=== PATIENT | male | born 1995 | race Caucasian/White ===

== ENCOUNTER 2024-03-22 05:20 | Observation (INO) ==
--- NOTE | 2024-03-10 16:01 | Anesthesiology Consultation ---
Date of Service March 10, 2024 Assessment & Plan (1) Encounter for pre-operative examination: - Infectious disease screening: Per assessment on 03/10/24: No known infectious disease contacts or current infectious disease symptoms. No noted recent Covid positive test result. - S/P Lefort 1 in Segments (05/01/22): Grade view 1, MAC#3, ETT 7 at [facility] Chart Review Chart Review: Acceptable Risk for Surgery and Patient NOT seen in Pre Admission Testing History Surgery Operation Date: 03/22/24 07:00 Proposed Procedures p Lefort I and Sagittal Splint Bone Grapy Surgical Splint Placement - Julien Moncada, DMD Height/Weight Height: 5 ft 9 in Weight: 63.503 kg Allergies Allergy/AdvReac Type Severity Reaction Status Date / Time amoxicillin Allergy Unknown child Verified 03/10/24 15:33 Medications Home Medications Medication Instructions Recorded Confirmed Last Taken estradiol 2 mg tablet (Estrace) 2 mg PO TID 03/07/21 03/10/24 04/30/22 21:00 pediatric multivitamin (Gummi Bear 1 tab PO QAM 03/07/21 03/10/24 04/30/22 09:00 Multivitamin chewable tablet) ascorbic acid (vitamin C) 500 mg 500 mg PO QAM 04/24/22 03/10/24 04/30/22 09:00 capsule ondansetron HCl 8 mg tablet 8 mg PO Q8H PRN nausea and 04/30/22 03/10/24 Unknown vomiting #10 tabs lisdexamfetamine 20 mg capsule 20 mg PO QAM 06/11/23 03/10/24 Unknown (Vyvanse) escitalopram oxalate 10 mg tablet 10 mg PO QAM 03/10/24 03/10/24 Unknown (Lexapro) Past Medical History Medical History ADHD Anxiety 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 Depression GERD (gastroesophageal reflux disease) Hx of migraines Monthly Temporomandibular joint disorder + clicking, no locking Transgender Past Family History Family History Other No known health problems Past Surgical History Surgical History History of wisdom tooth extraction Hx of myringotomy Hx of oral surgery Lefort 1 in Segments (05/01/22): Grade view 1, MAC#3, ETT 7 at [facility] Social History Smoking Status: Never smoker tobacco type: e-cigarettes Smoking cigarettes per day: Vapes Do You Dip or Chew Tobacco: No Hx Alcohol Use: No Hx Substance Use: Yes substance use type: marijuana (Medical card- inh, daily) Lab Results Anesthesia Preop Results Results Anesthesia Widget: WBC 5.00 K/ul (4.8-10.8) 03/07/24 Hgb 12.9 g/dl (14.0-18.0) L 03/07/24 Hct 37.7 % (42.0-52.0) L 03/07/24 Plt 188 K/uL (130-400) 03/07/24 PT 10.5 Seconds (9.0-12.0) 03/07/24 PTT 27 Seconds (21-31) 03/07/24 INR 1.0 (0.9-1.1) 03/07/24 Blood Type A Positive 03/07/24 Antibody Screen NEGATIVE 03/07/24
[2024-03-22] MEDS: LR 15ML/HR IV SCH (05:52)
[2024-03-22] MEDS: LACTATED RINGER'S 1,000 ML IV SCH (05:52)
--- NOTE | 2024-03-22 07:07 | History & Physical Report ---
Date of Service March 22, 2024 History of Present Illness Chief Complaint: HPI History of Present Illness: I updated the H and P today no changes noted -OK for the planned procedures. Janae was in today as his pre-surgical orthodontics as per Dr Hollingsworth is completed and Janae is now ready to begin the development of the treatment plan. Clinically the maxilla is very retrognathic and deviated to the right, there may also be a slight cant and vertical maxillary excess. The mandibular arch is retrognathic with a very small chin, the jaw angles are well defined. We discussed the need for virtual planing. To start the process we will need to order a CT scan. Once the scan is completed and reviewed I will send to [facility] to plan for the OG surgery and once approved order the custom bone plates. My thoughts will be to impact the upper 2mm and adjust the occlusion, cant, A-P advancement and any vertical excess. The lower jaw will then be advanced to achieve the most ideal occlusion with the new maxillary position. We reviewed the surgery, pre-op instruction and a form discussing some helpful hints was also provided. I will discuss the plan with cab driver Dr Refugio Hollingsworth. I will coordinate with Dr Edel Cardoso, The OR and my schedule to come up with a date to preform the maxillary and mandibular osteotomies. If I can get the surgery set up on March 03 that would be ideal. I will check with Dr Hollingsworth if he feel a new set of models will be need to insure accuracy. Ideally I would like to send all the records to [facility] by February if we plan for the March 03 date. Janae is here today for an OG follow up. Her ortho is now completed and she will be ready for the OG surgery to correct the open bite and maxillary retrognathism. There is a slight cant to the maxilla but the lip/tooth relationship is good. The nasal labial angle is obtuse secondary to the maxillary retrognathism. Dr Hollingsworth feels the occlusion is ready for the surgery--I will be doing a final review with him next week. My plan is for a virtual planning with pictures, models and CT scan Will need LeFort advancement with Sagittal advancement to achieve a Class I stable functional result. The patient was referred for an orthognathic evaluation. 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 Reviewed the risks such as pain,swelling,infection, bleeding, nerve injury which could cause permanent numbness to face, lips, chin, tongue and gums, sinus issues, congestion, stiffness and muscle pain, changes in bite and looks of teeth and face. Injury to teeth=root canals, scaring, need for further ortho, malunion, poor result home and oral care stressed, TMJ issues, cosmetic issues, nasal, lip changes. Changes to the upper lip which is very thin, balance to face, chin, nose, lips Also reviewed home care, diet,follow up, activity level and continuation of orthodontic care. Diagnosis Maxillary and Mandibular Hypoplasia and Retrognathism Suggested treatment-----Maxillary LeFort and sagittal advancements Main Concern: "my chewing is getting worse, I continue to bite my lips and tongue, my bite is off," L[employer]ustic[employer] Operator needed to correct lower arch due to it being narrow, however there is need for upper jaw to be made wider so the lower teeth can be up righted--this was done about 2 years ago now ready for phase 2. Major Discrepancies: maxillary A-P hypoplasia and retrognathic lower jaw, poor dental occlusion lower/upper teeth, narrow upper-skeletal arch form. A-P Retrognathism-- There is a 5 mm retrognathic relationship of the lower to upper jaw, Retrognathism upper jaw, once the ideal A-P position of the upper jaw is established the discrepancy will be about 10 mm Vertical Edge to Edge relationship-There is a 5 mm open bite relationship Transverse: The transverse relationship has been corrected with the Phase I procedure Medical Indication For Reconstructive Jaw Surgery Class II open bite deformity Based on the established guidelines from the [place] [employer]ill[employer] the severity of this deformity precludes adequate treatment through dental treatment alone. Medical necessity has been established by the significant deformity and the resulting in functional impairment in mastication. Inability to close jaws into a normal relationship due to the severe skeletal deformity. Skeletal malocclusion due to the skeletal deformity resulting in a traumatic occlusion Chronic mastication difficulty due to the skeletal deformity. Soft tissue trauma to tongue, lips and cheeks due to the traumatic occlusion. excessive kumar of lower teeth side X ray evaluation: Cephalometric analysis---retrognathic lower jaw of 5-6 mm, retrognathic upper jaw, open bite, slight cant of upper Panorex:---TMJ all WNL, kumar of teeth due to skeletal malocclusion. Surgical Plan Sagittal split advancement CPT 93915 ICD 10 M26.04 Maxillary LeFort I advancement with Graft CPT 84298 ICD 10 M26.02 Placement of surgical splint x 2 (double jaw) CPT 23078 The above mentioned surgical procedure is not being preformed for any type of cosmetic reasons. The patient has a true jaw deformity that is preventing him/her from functioning in a normal manner. The proposed surgery is for functional rehabilitation of the skeletal alignment of the patient`s jaw. Letter for insurance verification Dear Oil Distributor, I had the opportunity to examine Junior Valiente (Raine) in my office for an obvious jaw deformity. Clinical and radiographic examination revealed that Janae has a significant skeletal malocclusion. This is associated with an abnormal growth of both the upper and lower jaw. The appropriate diagnostic codes for the above deformities are as follows: Maxillary Hypoplasia M26.02 Mandibular Hypoplasia M26.04 Open bite deformity M26.29 The discrepancy between the upper and lower jaw has resulted in a significant skeletal deformity. I propose the following surgical procedures to correct this skeletal malocclusion. LeFort I with graft CPT 62192 Sagittal Osteotomy CPT 37476 Surgical splint CPT 47649 The goal of this proposed jaw surgery is to re-establish the functional capacity of the patient`s bite. This has been brought about primarily by an unbalanced jaw relationship and resulting lack of occlusion. My patient`s main complaint is difficulty with mastication and chronic lip,tongue and cheek bitting. The primary goal of this treatment is to restore normal function through sikh of proper jaw position. The deformity is not correctable by orthodontic alone and surgery is medically necessary.We are preforming this procedure to obtain a function jaw relationship. The planned surgery will be preformed in the OR of [facility] in [place], [place]. A 23 hour observation following the surgery is planned.This surgery should be considered medically necessary for the patient`s well-being. This letter represents a request for pre-authorization/pre-determination/pre-certification for the corrective jaw surgery. Please review this information and contact my office with your results. Should you require additional information or wish to discuss this case further I can be reached at [phone] (cell Dr. Ludwig) Thank you for your prompt attention to this request. Sincerely, Julien Ludwig DMD Oral Maxillofacial Surgery [facility] Physical Exam Physical Exam I updated the H and P today no changes noted -OK for the planned procedures. 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, cant of maxilla Neck trachea midline, no thyromegaly Thyroid: normal thyroid Respiratory normal respiratory effort, lungs clear to auscultation Auscultation: lungs clear to auscultation bilaterally Cardiovascular RRR, no murmur, no edema Rate/Rhythm: regular rate and regular rhythm Gastrointestinal (Abdomen) normal bowel sounds, soft, nontender, no hepatosplenomegaly Musculoskeletal no cyanosis or clubbing, extremities motor strength 5/5 Skin no rashes, warm and dry Neurologic PERRL, EOMI, accommodation nl, no face palsy, no dysarthria Cranial Nerves: sense of smell intact, PERRL, normal accommodation, EOM intact bilaterally, normal facial strength, tongue midline, normal gag reflex, normal hearing, able to rotate head bilaterally, able to elevate shoulders bilaterally, no nystagmus and symmetric palate elevation Psychiatric A+Ox3, euthymic affect Orientation: cooperative Lymphatic no cervical or axillary lymphadenopathy PFSH I updated the H and P today no changes noted -OK for the planned procedures. Medical History (Updated 10/24/23 @ 19:31 by Julien Ludwig DMD) Transgender man on hormone therapy GERD (gastroesophageal reflux disease) ADHD Depression Anxiety Temporomandibular joint disorder Migraine Surgical History (Updated 05/01/22 @ 11:48 by Roxanna Waller RN) Hx of oral surgery (05/01/22) History of wisdom tooth extraction Hx of myringotomy Family History Other No known health problems Social History Smoking Status: Never smoker Cigarettes Per Day: VAPES ON OCC DAILY; Second Hand Exposure: No; Do You Dip or Chew Tobacco: No; Hx Alcohol Use: No Hx Substance Use: Yes Non-Prescribed Medications: Marijuana Substance Use Type Other:: MEDICAL MARIJUANA CARD-INH DAILY Preferred Language: Sudanese Communication Ability: Effective Visual Impairment: No Limitations Former Hand Required: No Beliefs That Will Affect Care: None Current Living Situation: Alone current occupational status: employed current occupation: [email or web address] Feels Safe at Home: Yes Diet: regular [facility] Medical History (Updated 10/24/23 @ 19:31 by Julien Ludwig DMD) Transgender man on hormone therapy GERD (gastroesophageal reflux disease) ADHD Depression Anxiety Temporomandibular joint disorder Migraine Surgical History (Updated 05/01/22 @ 11:48 by Roxanna Waller RN) Hx of oral surgery (05/01/22) History of wisdom tooth extraction Hx of myringotomy Family History Other No known health problems Social History Smoking Status: Never smoker Cigarettes Per Day: VAPES ON OCC DAILY; Second Hand Exposure: No; Do You Dip or Chew Tobacco: No; Hx Alcohol Use: No Hx Substance Use: Yes Non-Prescribed Medications: Marijuana Substance Use Type Other:: MEDICAL MARIJUANA CARD-INH DAILY Preferred Language: Sudanese Communication Ability: Effective Visual Impairment: No Limitations Former Hand Required: No Beliefs That Will Affect Care: None Current Living Situation: Alone current occupational status: employed current occupation: [employer] Feels Safe at Home: Yes Diet: regular Results Reviewed Results Reviewed Results Common Labs: Potassium 3.4 mmol/L (3.5-5.1) L 04/25/22 Sodium 137 mmol/L (136-145) 04/25/22 Chloride 105 mmol/L (98-107) 04/25/22 BUN 7 mg/dl (6-23) 04/25/22 Creatinine 0.73 mg/dl (0.6-1.4) 04/25/22 Carbon Dioxide 26 mmol/L (21-32) 04/25/22 Glucose 91 mg/dl (70-99(Fasting)) 04/25/22 RBC 4.28 M/uL (4.7-6.1) L 04/25/22 WBC 6.37 K/uL (4.8-10.8) 04/25/22 Hgb 13.4 g/dL (14.0-18.0) L 04/25/22 Hct 38.6 % (42-52) L 04/25/22 Plt Count 244 K/uL (130-400) 04/25/22 Nursing Visit Reasons: EST PER DR LUDWIG Allergies amoxicillin Allergy (Unknown, Verified 01/19/24 16:08) child Medications estradiol 2 mg tablet (Estrace) 2 mg PO TID 03/07/21 [History Confirmed 01/19/24] pediatric multivitamin (Gummi Bear Multivitamin chewable tablet) 1 tab PO QAM 03/07/21 [History Confirmed 01/19/24] ascorbic acid (vitamin C) 500 mg capsule 500 mg PO QAM 04/24/22 [History Confirmed 01/19/24] cholecalciferol (vitamin D3) 25 mcg (1,000 unit) capsule (Vitamin D3) 25 mcg PO QAM 04/24/22 [History Confirmed 01/19/24] ondansetron HCl 8 mg tablet 8 mg PO Q8H PRN nausea and vomiting #10 tabs 04/30/22 [Rx Confirmed 01/19/24] lisdexamfetamine 20 mg capsule (Vyvanse) 20 mg PO DAILY 06/11/23 [History Confirmed 01/19/24] Primary Care Provider: JEFF Alexandra Allergies Allergy/AdvReac Type Severity Reaction Status Date / Time amoxicillin Allergy Unknown child Verified 03/22/24 05:39 Home Medications Medication Instructions Recorded Confirmed Type estradiol 2 mg tablet (Estrace) 2 mg PO TID 03/07/21 03/22/24 History pediatric multivitamin (Gummi Bear 1 tab PO QAM 03/07/21 03/22/24 History Multivitamin chewable tablet) ascorbic acid (vitamin C) 500 mg 500 mg PO QAM 04/24/22 03/22/24 History capsule ondansetron HCl 8 mg tablet 8 mg PO Q8H PRN nausea and 04/30/22 03/22/24 Rx vomiting #10 tabs lisdexamfetamine 20 mg capsule 20 mg PO QAM 06/11/23 03/22/24 History (Vyvanse) escitalopram oxalate 10 mg tablet 10 mg PO QAM 03/10/24 03/22/24 History (Lexapro) chlorhexidine gluconate 0.12 % 15 ml mucous membrane BID oral 03/17/24 03/22/24 Rx mouthwash (Peridex) surgery #473 mL clindamycin HCl 300 mg capsule 300 mg PO TID 7 days #30 caps 03/17/24 03/22/24 Rx hydrocodone 5 mg-acetaminophen 325 1 tab PO Q4H PRN pain #20 tabs 03/17/24 03/22/24 Rx mg tablet ondansetron HCl 8 mg tablet 8 mg PO Q8H PRN nausea and 03/17/24 03/22/24 Rx vomiting #10 tabs Past Med/Surg History Medical History Transgender 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 Hx of migraines Monthly GERD (gastroesophageal reflux disease) ADHD Depression Anxiety Temporomandibular joint disorder + clicking, no locking Surgical History Hx of oral surgery Lefort 1 in Segments (05/01/22): Grade view 1, MAC#3, ETT 7 at [facility] History of wisdom tooth extraction Hx of myringotomy Family History Other No known health problems Social History Smoking Status: Never smoker Cigarettes Per Day: Vapes; Second Hand Exposure: No; Do You Dip or Chew Tobacco: No; Tobacco Cessation Education Requested by Patient: No Hx Alcohol Use: No Hx Substance Use: Yes Non-Prescribed Medications: Marijuana Substance Use Type Other:: MEDICAL MARIJUANA CARD-INH DAILY Preferred Language: Sudanese Communication Ability: Effective Visual Impairment: No Limitations Former Hand Required: No Beliefs That Will Affect Care: None Current Living Situation: Alone current occupational status: employed current occupation: Information technology Other Information That Helps Us Care for You: No Feels Safe at Home: Yes Safety Concerns: Feels Safe At This Time Diet: regular Assistive Devices: None Results & Data Results & Data Vital Signs (Past 12 Hours) Vital Signs Temp Pulse Resp BP Pulse Ox O2 Del Method 03/22/24 06:01 36.6 C 63 20 146/96 H 99 Room Air PG Care Time/CCT Total # of Minutes Spent Total Time Spent with Patient: Total time spent is greater than 50% in coordination of care (as documented) at patient's floor/unit and/or counseling patient: Coding Level of Care Code None
--- NOTE | 2024-03-22 07:07 | History & Physical Bridge Note ---
Date of Service March 22, 2024 History & Physical Bridge Note I have examined the patient, reviewed the History & Physical and in the interval since the performance of the History & Physical I have noted the following changes of clinical significance: no changes noted. I updated the H and P today no changes noted -OK for the planned procedures.
[2024-03-22] MEDS ORDERED: fentaNYL citrate PF 100 MCG/2 ML VIAL ONE ×2 (07:09→08:41)
[2024-03-22] MEDS ORDERED: MIDAZOLAM HCL 1 MG/ML 2ML VIAL ONE (07:09)
[2024-03-22] MEDS: SCOPOLAMINE 1 MG/72 HR TDSY PATCH TD ONE (07:15)
[2024-03-22] MEDS ORDERED: ePHEDrine sulfate 50 MG/ML AMP IV PRN (07:16)
[2024-03-22] MEDS ORDERED: ATROPINE SULFATE 0.1 MG/ML 10ML SYR IV PRN (07:16)
[2024-03-22] MEDS ORDERED: DROPERIDOL 5 MG/2 ML VIAL IV PRN (07:16)
[2024-03-22] MEDS: CLINDA 900 MG **Premixed Bag IV SCH (07:29)
[2024-03-22] MEDS ORDERED: LIDOCAINE 2% 2 ML VIAL/AMP(20MG/ML) INFIL ONE (08:09)
[2024-03-22] MEDS ORDERED: ONDANSETRON INJ 2 MG/ML 2 ML VIAL ONE (08:09)
[2024-03-22] MEDS ORDERED: PROPOFOL IV EMULSION 10 MG/ML 20 ML VIAL IV ONE ×2 (08:09→08:27)
[2024-03-22] MEDS ORDERED: ROCURONIUM BROMIDE 10 MG/ML 5 ML VIAL IV ONE ×2 (08:09→12:02)
[2024-03-22] MEDS ORDERED: GLYCOPYRROLATE 0.2 MG/ML VIAL ONE ×2 (08:09→08:22)
[2024-03-22] MEDS ORDERED: DEXAMETHASONE SOD INJ 4 MG/ML VIAL ONE (08:09)
[2024-03-22] MEDS ORDERED: diphenhydrAMINE 50 MG/ML VIAL ONE ×2 (08:09→08:22)
[2024-03-22] MEDS ORDERED: KETOROLAC 30 MG/ML VIAL ONE (08:24)
[2024-03-22] MEDS: BUPIVACAINE/EPINEPHRINE 0.5% 1:200,000 1.8 ML CARP ONE (08:25)
[2024-03-22] MEDS: TRIAMCINOLONE ACET 0.1% OINT 15 GM TUBE ONE (08:26)
[2024-03-22] MEDS: CHLORHEXIDINE GLUCONATE 0.12% 480 ML MT ONE (08:26)
[2024-03-22] MEDS ORDERED: DexMEDEtomidine HCL IV 100 MCG/ML VIAL IV ONE (08:49)
[2024-03-22] MEDS ORDERED: HYDROmorphone INJ 2 MG/ML SYR/VIAL ONE (09:47)
[2024-03-22] MEDS: SURGICEL ABSORB HEMOSTAT 2IN X 14IN TOP ONE (10:26)
[2024-03-22] MEDS ORDERED: PHENYLEPHRINE 100MCG/ML 10ML SYR IV ONE (11:46)
[2024-03-22] MEDS ORDERED: SUGAMMADEX SODIUM 200 MG/2 ML VIAL IV ONE (11:58)
[2024-03-22] MEDS ORDERED: ACETAMINOPHEN SUSP 325 MG/10.15 ML UDC PO PRN (13:59)
[2024-03-22] MEDS ORDERED: MoRPHine SULFATE 4 MG/ML 1 ML CARP\\VIAL IV PRN (13:59)
[2024-03-22] MEDS ORDERED: HYDROcodone/APAP 7.5/325mg/15mL ELIX 15 ML/CUP PO PRN (13:59)
[2024-03-22] MEDS ORDERED: OXYMETAZOLINE 0.05% 30 ML BTL PRN (13:59)
[2024-03-22] MEDS ORDERED: MoRPHine SULFATE 2 MG/ML CARP IV PRN (13:59)
--- NOTE | 2024-03-22 14:10 | Post Operative Brief Note ---
PG Immediate Post Op with CF Date of Surgery March 22, 2024 Pre & Post Diagnosis Operation Date: 03/22/24 07:15 Pre-Op Diagnosis: Maxillary and Mandibular Hypoplasia and Retrognathism Post-Op Diagnosis: Maxillary and Mandibular Hypoplasia and Retrognathism I identified the patient and participated in the time-out.: Yes Procedure Operation Date: 03/22/24 07:15 Actual Procedures p Lefort I, Sagittal Splint, Bone Graph, and Surgical Splint Placement - Julien Moncada DMD Surgeon Julien Moncada, RAYMOND Roustabout none Estimated Blood Loss 50 Findings Consistent with Post-Op Diagnosis class ii open bite Specimens Specimen Description: No Specimen Drains Simpson Catheter (straight cath'd at end of procedure, without difficulty by Boris Hdez RN. Urine return clear, yellow. Urine output 300mL.) Anesthesia Type General Complications none Disposition Accompanied Patient To Recovery: Yes
[2024-03-22] MEDS: ONDANSETRON INJ 2 MG/ML 2 ML VIAL IV PRN (14:14)
[2024-03-22] MEDS: HYDROmorphone INJ 2 MG/ML SYR/VIAL IV PRN (14:20)
--- NOTE | 2024-03-22 14:47 | Anesthesiology Progress Note ---
Date of Service March 22, 2024 Anesthesia Post Procedure Vital Signs Vital Signs: Temp Pulse Pulse Resp BP Pulse Ox O2 Del Method 03/22/24 14:35 68 15 107/62 98 Nasal Cannula 03/22/24 14:25 58 L 20 116/60 99 Oxymask 03/22/24 14:15 79 12 120/58 L 99 Oxymask 03/22/24 14:07 36.6 C 101 H 12 128/74 98 Oxymask 03/22/24 06:01 36.6 C 63 20 146/96 H 99 Room Air O2 Flow Rate 03/22/24 14:35 2 03/22/24 14:25 5 03/22/24 14:15 5 03/22/24 14:07 5 03/22/24 06:01 Pain Intensity Face: Pain Intensity: 3 Transfer of Care Handoff Completed per policy Notes Mental Status: alert / awake / arousable and participated in evaluation Nausea / Vomiting: adequately controlled Pain: adequately controlled Airway Patency, RR, SpO2: stable & adequate BP & HR: stable & adequate Hydration State: stable & adequate Anesthetic Complications: no major complications apparent and Pt Satisfied with anesthetic care
--- NOTE | 2024-03-22 15:08 | XRay Report ---
MANDIBLE 2 VIEWS CLINICAL HISTORY: Postoperative examination. FINDINGS: AP and crosstable lateral views of the mandible are correlated with facial bone CT dated 10/2024. The skeletal structures are well mineralized. There is postsurgical change from bilateral ma ndibular osteotomy. Four cortical lag screws transfix the osteotomy on the right and 3 screws transfi louisa osteotomy on the left. Near-anatomic alignment is maintained. There has been buttress plate fixa tion along the anterior aspect of the maxilla bilaterally. The orthopedic hardware appears intact. Or thodontic hardware is noted. The visualized paranasal sinuses appear clear. Soft tissue edema overlie s the operative sites. IMPRESSION: Postsurgical change involving maxilla and mandible as above. Dictated: 03/22/2024 2:36 PM Transcribed: 03/22/2024 2:46 PM Raya [id number] RICHI_Blake [id number] Electronically signed by: Jamar Luna M.D. 03/22/2024 3:07 PM
[2024-03-22] MEDS: SCOPOLAMINE 1 MG/72 HR TDSY PATCH TD STA (15:44)
[2024-03-22] MEDS: dexAMETHasone 6 MG in SYRINGE 0 ML IV SCH (15:56)
[2024-03-22] MEDS: KETOROLAC 30 MG/ML VIAL IV SCH (15:56)
[2024-03-22] MEDS: LORazepam 1 MG in SYRINGE 0.5 ML IV PRN (15:56)
[2024-03-22] MEDS: CLINDAMYCIN/D5W 600 MG/50 ML BAG IV SCH (15:57)
[2024-03-22] MEDS ORDERED: CHECK SCOPOLAMINE PATCH PLACEMENT SCH (16:00)
[2024-03-22] MEDS: CHLORHEXIDINE GLUCONATE 0.12% 480 ML MT SCH (21:53)
[2024-03-22] MEDS: TRIAMCINOLONE ACET 0.1% OINT 15 GM TUBE EXT SCH (21:54)
--- NOTE | 2024-03-23 12:24 | Oral/Maxillofacial Progress Nt ---
Date of Service March 23, 2024 Assessment & Plan Admission and Anticipated Discharge Date Admission Date: March 22, 2024 Subjective Orthognathic surgery post op note at 24 hours Excellent result, ROM improving OK FOR DISCHARGE TODAY Tissue tone, gingival tissue--excellent Occlusion very stable with a reproducible bite. No TMJ issues-pain, pain well controlled Reviewed use of functional elastics No nasal congestion or bleeding, septum well positioned. No sinus issues Facial alignment excellent Reviewed post op care--ice, massage,diet, oral care, use of elastics, activities. Next appointment set up for: March 29 at 4:15 Overall excellent result from recent OG surgery RTC for continued follow up Results & Data Vital Signs (Past 12 Hours) Vital Signs Temp Pulse Pulse Resp BP BP Pulse Ox 03/23/24 11:04 37.2 C 76 18 144/87 H 97 03/23/24 08:12 03/23/24 07:52 36.8 C 92 H 18 143/68 H 98 03/23/24 06:56 74 03/23/24 03:14 36.7 C 80 16 125/77 97 O2 Del Method 03/23/24 11:04 Room Air 03/23/24 08:12 Room Air 03/23/24 07:52 Room Air 03/23/24 06:56 03/23/24 03:14 Room Air PG Care Time/CCT Total # of Minutes Spent Total Time Spent with Patient: Total time spent is greater than 50% in coordination of care (as documented) at patient's floor/unit and/or counseling patient: Coding Level of Care Code None
--- NOTE | 2024-03-23 12:26 | Discharge Summary ---
Date of Service March 23, 2024 Admission HPI Per Admitting Provider Had double jaw surgery yesterday for class II open bite. Did very well still swollen as expected V.S stable, PO good, no complaints OK for discharge today Discharge and Orthognathic surgery post op note at 24 hours Excellent result, ROM improving OK FOR DISCHARGE TODAY Tissue tone, gingival tissue--excellent Occlusion very stable with a reproducible bite. No TMJ issues-pain, pain well controlled Reviewed use of functional elastics No nasal congestion or bleeding, septum well positioned. No sinus issues Facial alignment excellent Reviewed post op care--ice, massage,diet, oral care, use of elastics, activities. Next appointment set up for: March 29 at 4:15 Overall excellent result from recent OG surgery RTC for continued follow up Discharge Data Procedures Performed Operation Date: 03/22/24 07:15 Actual Procedures p Lefort I, Sagittal Splint, Bone Graph, and Surgical Splint Placement - Julien Moncada DMD Coding Level of Care Code 19998 IN/OBS DISCH 30 MIN/LESS
--- NOTE | 2024-03-27 19:31 | Operative Report ---
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 Post-Op Diagnosis: Maxillary and Mandibular Hypoplasia and Retrognathism I identified the patient and participated in the time-out.: Yes Procedure Operation Date: 03/22/24 07:15 Actual Procedures p Lefort I, Sagittal Splint, Bone Graph, and Surgical Splint Placement - Julien Moncada DMD Surgeon Julien Moncada, RAYMOND Splitting Machine Feeder none Estimated Blood Loss 150 Findings Consistent with Post-Op Diagnosis Specimens none Drains none Anesthesia Type General Complications none Disposition Accompanied Patient To Recovery: Yes Indications Class II open bite with retrognathic upper and lower jaws Description of Procedure Pre-Op Diagnosis: Maxillary Hyperplasia, Mandibular Hypoplasia Post-Op Diagnosis: Maxillary Hyperplasia, Mandibular Hypoplasia I identified the patient and participated in the time-out.: Yes Description of Procedure Pre-Op Diagnosis: 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 After adequate anesthesia was obtained, the patient was prepped and draped in the usual manner for a mandibularsagittal osteotomy and LeFort I advancement. The patient had a class II occlusion with deviation to the right and maxillary/mandible retrognathism as well as Vertical excess with canting and open bite This was a complex deformity in 3 D Atime out was taken for patient ID, antibiotics, equipment and position verification once all agreed the procedure began. After the facial area was draped with the appropriate sterile technique, local anesthesia was infiltrated into themandibular and maxillarytissues to allow for hemostasis with local anesthetic effect.After an adequate period of time to allow for the hemostasis and local anesthetic effect, an oropharyngeal throat pack was placed, the oral cavity was irrigated and suctioned dried with Peridex mouth rinse. At this time, the appropriate time outs to verify the patient, position, type of surgery,antibiotics and equipment once everyone agreed we then started the operative procedure. Since that was a double jaw procedure the plan was to start with the lower jaw but not complete the cuts then complete the upper and then return to the lower for the completion of the bilateral sagittal splints. Right side sagittal split phase I Using an electrocautery instrument, an incision approximately 1.5 cm in length was made in the external oblique region on theright side. The tissue was reflected to expose the bone. Once the bone was reflected; I had good visualization of the inferior border of the mandible, the angle of the mandible, the lingual aspect of the mandible and the nerve as it entered the mandibular foramen. Now with a fiberoptic retractor I was able to hold the lingual tissue out of the way and had good visualization of the lingual cortical plate and the nerve entrance into the bone. With the large round dayana, I was able to remove the spinous processes of the external oblique ridge. Now using a reciprocating saw, an osteotomy was made parallel to the occlusion plane of the mandibular molar teeth approximately 1-2 mm above the nerve. I then used the spear point [place] dayana very carefully to make a trough in the external oblique ridge from the previously made osteotomy to an area between the 1st and 2nd molars. I now continued the osteotomy parallel to the long axis of the lower molarsinferiorly to the inferior border of the mandible, taking great care to avoid any trauma to the neurovascular bundle and to ensure that I cut through the cortical plate into the marrow vascular channel. The area was packed and the left side was now addressed. Left side sagittal split phase I Using an electrocautery instrument, an incision approximately 1.5 cm in length was made in the external oblique region on the left side. The tissue was reflected to expose the bone. Once the bone was reflected; I had good visualization of the inferior border of the mandible, the angle of the mandible, the lingual aspect of the mandible and the nerve as it entered the mandibular foramen. Now with a fiberoptic retractor I was able to hold the lingual tissue out of the way and had good visualization of the lingual cortical plate and the nerve entrance into the bone. With the large round dayana, I was able to remove the spinous processes of the external oblique ridge. Now using a reciprocating saw, an osteotomy was made parallel to the occlusion plane of the mandibular molar teeth approximately 1-2 mm above the nerve. I then used the spear point [place] dayana very carefully to make a trough in the external oblique ridge from the previously made osteotomy to an area between the 1st and 2nd molars. I now continued the osteotomy parallel to the long axis of the lower molarsinferiorly to the inferior border of the mandible, taking great care to avoid any trauma to the neurovascular bundle and to ensure that I cut through the cortical plate into the marrow vascular channel.The area was packed and I now turned my attention to the maxilla.The bone was thin and dense with a limited marrow space as complained to the right side. LeFort I osteotomy: I turned my attention now to the maxilla. On the preoperative evaluation, the maxilla needed to be advanced 5 mm with a slight rotation to line up the midlines there was also a cant adjustment. To accomplish this, a Le Fort I maxillary osteotomy was carried out. An electrocautery instrument was used to make an incision from the 1st bicuspid area on the right side across the midline to the opposite bicuspid area. The tissues reflected in the usual manner to expose the mucoperiosteal tissue and to get good exposure of the anterior nasal spine, the roots of the maxillary anterior and posterior teeth and the piriform rim. Once this was reflected, I was able to then reflect posteriorly to get good access to the pterygoid plate areas. I then spent a lot of time dissecting around the nasal bones to ensure that we had good visualization of the floor of the nose and the piriform rims. At this time,the custom surgical guides were placed with an excellent fit. They were secured with small fixation screw, I ensured that the cuts will be made to avoid any anatomic structures.Before starting the bone cuts since the bone plates were also custom made I pre-drilled the holes to be used later in the fixation process. At this time, a retractor was placed intranasally and I made an osteotomy parallel to the occlusal plane from the piriform rim posteriorly to the tuberosity region. I then completed a similar osteotomy on the left side of the maxilla. Once this was done, a curved osteotome was used to osteotomize the pterygoid plate from the tuberosity region of both right and left sides. A ball curved osteotome was used to osteotomize the medial rashid of the maxillary sinus. I now used a straight osteotome with a protective edge to osteotomize the nasal septal tissue. I now removed the surgical guides.Once this was done, I was able to reflect all the nasal mucoperiosteal tissue of the floor of the nose. By doing this, the maxilla was quite easily downfractured. The downfracture occurred without any problems.I was able to preserve then neurovascular bundle posteriorly on the right side and left side .With great deal of blunt and sharp dissection as well as removing a lot of bony interferences, I was able to make the maxilla very passive. The maxilla was repositioned and leveled as per the surgical plan. I then irrigated the maxillary sinuses of any debris and/or polyps that were noted. Hemostasis was in good control. I made sure that the maxilla was quite passive. The preformed surgical appliance, the interim splint was applied to the mandible and the maxilla was easily seated into the split and the maxillary mandibular complex was then rotated superiorly. I noted that the maxilla was now positioned in its new position. The hemostasis was in control and all bony margins were passive. At this time, the maxillary mandibular complex was superiorly repositioned. Great care was taken to make sure that the condyles were well seated within the glenoid fossa. Being satisfied with this,I placed the preformed custom titanium fixation plates. The plates were passive and lined up with the previously made holes, I then used a titanium screw and obtained direct fixation. Once this was accomplished, I now removed the fixation wires and the intermediate splint.I noted that the maxilla was extremely stable and the occlusion was reproducible.The maxilla was now stable and in ideal post surgical position. As a result of the gaps and 3-D movement I needed to bone graft the maxilla with an alloplastic sponge like bone graft material. I carefully fitted the bone grafts into the right/left lateral and posterior gaps and wedged them into place--they were stable and well positioned. I turned my attention to the mandible to complete the osteotomies. Splitting right side With the use of a bone instrument fitter and a small osteotome, I was able to complete the sagittal split of the right mandibular ramus.Great care was taken to avoid any trauma to the neurovascular bundle. The nerve was not traumatized and was in excellent position. I did a lot of bone reduction to allow for the mandible to be passively positioned without any pressure on the nerve or pressure that could cause distortion of the mandibular condyle. Hemostasis was in excellent control. It was noted that there were few small bony interferences that trimmed with the use of rongeurs and rotary instrument. Once this was accomplished I packed the side with a gauze sponge to prevent any pressure on the nerve and to control bleeding. At this time, I turned my attention to the left side. Splitting left side With the use of a bone instrument fitter and a small osteotome, I was able to complete the sagittal split of the left mandibular ramus. Great care was taken to avoid any trauma to the neurovascular bundle as a had to mobilize the nerve to free it as it was adherent to the to the condyle section of the bone (proximal) The left side was thinner and had a limited marrow space. I did a lot of bone reduction to allow for the mandible to be passively positioned without any pressure on the nerve or pressure that could cause distortion of the mandibular condyle. Hemostasis was in excellent control. It was noted that there were few small bony interferences that trimmed with the use of rongeurs and rotary instrument. Once this was accomplished I packed the side with a gauze sponge to prevent any pressure on the nerve and to control bleeding. Establishing the occlusion Because of the large lateral and 3-D movement a lot more bone adjustment and muscle reflection was needed to gain passive segment relationship.Once the right and left sides were completely cut and the soft tissue was reflected to allow repositioning the final occlusal splint was applied to the mandible and the mandibular complex with the splint was easily rotated and held into position and stabilized with 25 gauge stainless steel wires to the maxilla. Once both sides were split and the segments were layingpassively over each other, the osteotomy site was then trimmed to ensure that there were no bony interferences. I irrigated the areas with normal saline, I made sure that the neurovascular bundles were intact and positioned correctly and that hemostasis was in excellent control. Applying Direct osseous fixation Right side--I used a small clasp, placed between the two fragments and noted that the fragments were seating extremely passively over each other. I did some further trimming to ensure that there was no pressure on the nerve and to ensure that the condyle waswell seated. Being satisfied with this, I passed an 11 blade through the cheek, a trocar was placed and then interosseous holes were placed above the neurovascular bundle, but below the external oblique ridge for direct osseous fixation of the right mandibular fragment. There was almost a 8 mm advancement on this side but the bone was very dense cortical bone.Now direct osseous fixation of the right mandibular fragment was completed with 4 2 mm screws (CRISELDA Hunter) Left side--I used a small clasp, placed between the two fragments and noted that the fragments were seating extremely passively over each other. I did some further trimming to ensure that there was no pressure on the nerve and to ensure that the condyle waswell seated. This side had the rotation and about a 4 mm advancement. Being satisfied with this, I passed an 11 bladethrough the cheek, a trocar was placed and then 3 interosseous holes were placed above the neurovascular bundle (2 mm CRISELDA Hunter) I now checked both osteotomy sites and found them to be extremely stable. At this time, the temporary intermaxillary fixation was removed. The occlusion was extremely stable and reproducible. The patient had a good range of motion without clicks or pops or deviations. The sites were irrigated and checked for bleeding. I inspected the lingual aspects to make sure that the screws did not perforate the lingual cortical plate--none perforated the lingual cortex. Closure lower I turned my attention first to the right side; with the use of a 4-0 Vicryl suture, I was able to suture the osteotomy site. Once this was accomplished, we turned our attention to the left side and a similar suturing technique was carried out. Using a 6-0 nylon suture 2 skin sutures in each cheek site was used to close the skin. Closure upper The nasal septum was trimmed to help prevent buckling and to maintain the septum to the new midline. To accomplish this a small hole was made in the ANS and with the use of the 3- 0mysaline the septum was stabilized in the midline. Before closure of the upper the area was irrigated, hemostasis was controlled. To ensure proper closure with good anatomical form, I was able to grasp the alar cartilages on both the right and left side and then using a 3-0 Mersilene suture, I was able to perform an alar cinch technique to ensure good positioning of the lateral alar cartilages of the nose and to establish good base anatomy of the nose. Once this was done, I made sure that the nasal septum was well positioned in the midline. Being satisfied with this, I then began the V-Y closure with a 4-0 Vicryl of the mucosal tissue starting in the midline and then closed laterally on either side to ensure an even contouring of the tissue. When all was said and done, we had excellent closure of the soft tissue with great support of the nose. 2 dental elastics were applied in the cupid areas to allow for functional elastic stability. I now placed an elastic face bandage to maintain pressure to the face Recovery The patient was allowed to recover in the usual manner. I check to insure all instrument and sponge count was correct and verified the oral cavity was suctioned. Ipassed an oral gastric tube. When fully recovered, extubation occurred. All vital signs were stable. Now the anesthesia department transferred the patient to the hospital litter to be taken to the recovery room. I was pleased with the osteotomy site positioning, the positioning of the nerve, reproducible ideal occlusion and the functional improvement that was gained by the osteotomy. I attest to the content of the Intraoperative Record and any orders documented therein. Any exceptions are noted below.
== END 2024-03-23 14:17 | disposition home or self-care (01) ==
LOC: ASU 05:20 → 2N 05:20